=== PATIENT | female | born 1985 | race Caucasian/White ===

== ENCOUNTER → 2019-09-27 07:24 | Outpatient (CLI) | payer SELFPAY ==
--- NOTE | 2019-09-27 | DI.US.S_ITS ---
PROCEDURE: US OB <= 14 WEEKS FETUS INDICATIONS: SIZING AND DATING OUTSIDE/PRIOR DATING DATA: Last menstrual period (LMP): 08/08/19. LMP-based estimated date of delivery (MAURICIO): 05/14/20. First dating scan (date and location): 09/27/19 Estimated date of delivery (MAURICIO) from first dating scan: 05/03/20. TECHNIQUE: Real-time scanning was performed of the fetus and maternal pelvic organs, with image documentation. Endovaginal scanning was also performed to better visualize the fetus and maternal ovaries. COMPARISON: None. FINDINGS: Embryo: [employer]-rump length measures 21 mm corresponding to 8 weeks 5 days. Heart rate measures 170 beats per minute Measurement variability in dating: +/- 4 weeks by LMP, +/- 7 days by mean sac diameter (use before 6 weeks gestation if crown-rump length not able to be measured), +/- 5 days by crown-rump length (up to 8 weeks 6 days gestation), +/- 7 days by crown-rump length (up to 13 weeks 6 days gestation). Maternal organs: Ovaries within normal limits, with small right corpus luteal cyst. Limited images through the kidneys demonstrate no hydronephrosis. IMPRESSION: 8 week 5 day martell IUP corresponding to ultrasound MAURICIO of 05/03/20. Dictated by: Basilio SPARROW Interpreted: Gigi Sumner MD on 09/27/2019 at 8:39 Approved by: Gigi Sumner M.D. on 09/27/2019 at 16:51
== END ==
PROVIDERS: PCP Registered Nurse Women's Health Care, Ambulatory; Visit Provider Nurse Practitioner Family
DX: Z36.87 Encounter for antenatal screening for uncertain dates (principal); Z3A.08 8 weeks gestation of pregnancy
CPT/HCPCS: 76801

== ENCOUNTER → 2019-11-05 18:53 | Outpatient (ROUT) | payer OTHER, MEDICAID, SELFPAY | PROVIDERS: PCP Registered Nurse Women's Health Care, Ambulatory; Visit Provider Family Medicine | DX: N39.0 Urinary tract infection, site not specified (principal) | CPT/HCPCS: 87086 ==

== ENCOUNTER → 2019-12-11 07:35 | Outpatient (CLI) | payer OTHER, MEDICAID, SELFPAY ==
--- NOTE | 2019-12-11 | DI.US.S_ITS ---
PROCEDURE: US OB >= 14 WEEKS FETUS INDICATIONS: ANATOMY OUTSIDE/PRIOR DATING DATA: Last menstrual period (LMP): 08/08/19. LMP-based estimated date of delivery (MAURICIO): 05/14/20. First dating scan (date and location): 09/27/19. Estimated date of delivery (MAURICIO) from first dating scan: 05/03/20. TECHNIQUE: Real-time scanning was performed of the fetus, with image documentation and biometric measurements. Endovaginal scanning: Need COMPARISON: [facility], OB <= 14 WEEKS FETUS, 09/27/2019, 8:03. FINDINGS: General: A single living intrauterine gestation is present. Presentation: Vertex Placenta: Placental position is posterior, without previa. Amniotic fluid index: 14.3 cm, normal range is 5-24 cm. heart rate: 147 beats per minute. Maternal cervical canal: 3.3 cm long. Normal lower limit is 2.5 cm. biometrics: Biparietal diameter: 4.6 cm, 19 weeks 6 days Head circumference: 16.8 cm, 19 weeks 3 days Abdominal circumference: 13.8 cm, 19 weeks 2 days Femur length: 3.3 cm, 20 weeks 3 days Estimated gestational age from initial scan: 19 weeks 3 days Composite gestational age from present scan: 19 weeks 5 days Estimated weight and percentile: 311 g, 65% Measurement variability for biometric dating: +/- 7 days from 14 weeks to 15 weeks 6 days gestation, +/- 10 days from 16 weeks to 21 weeks 6 days gestation, +/- 2 weeks from 22 weeks to 27 weeks 6 days gestation, +/- 3 weeks for 28 weeks gestation or later. weight reference: 4500 g or EFW >90/95% is considered macrosomia or large for gestational age. EFW <10% is small for gestational age. EFW 5% or less is considered intra-uterine growth restriction. Anatomic survey: Neuro: Ventricles are non-dilated at less than 10 mm. Cisterna magna is normal at 3-11 mm. Cerebellum is normal in size and morphology. Nuchal skin fold: Normal at less than 6 mm between 14-21 weeks gestational age. Face: Nose and lips, facial profile are not well seen. Spine: No evidence for spina bifida. Heart: 4-chambered heart is present, with normal ventricular outflow tracts. Diaphragm: Diaphragm is intact. Stomach: Left-sided stomach is present. Kidneys: No hydronephrosis. Normal is less than 5 mm in 2nd trimester, less than 7 mm in 3rd trimester. Cord: 3-vessel cord has orthotopic insertion. Bladder: Normal in size. Extremities: All 4 extremities identified. IMPRESSION: facial structures are not well seen due to positioning. A followup limited OB ultrasound in one-2 weeks likely is warranted to complete the anatomic survey. No anomaly found. Appropriate interval growth, normal amniotic fluid volume. The delivery date is projected to be centered on 05/03/20. Dictated by: Adam José M.D. on 12/17/2019 at 16:46 Approved by: Adam José M.D. on 12/17/2019 at 16:49
== END ==
PROVIDERS: PCP Registered Nurse Women's Health Care, Ambulatory; Referring Provider Family Medicine; Visit Provider Family Medicine
DX: Z36.89 Encounter for other specified antenatal screening (principal); Z3A.19 19 weeks gestation of pregnancy
CPT/HCPCS: 76811

== ENCOUNTER → 2020-01-02 07:07 | Outpatient (CLI) | payer OTHER, MEDICAID, SELFPAY ==
--- NOTE | 2020-01-02 | DI.US.S_ITS ---
PROCEDURE: US OB FOLLOW UP INDICATIONS: FACIAL PROFILE NOT VISUALIZED OUTSIDE/PRIOR DATING DATA: Last menstrual period (LMP): 08/08/19. LMP-based estimated date of delivery (MAURICIO): 05/14/20. First dating scan (date and location): 09/27/19. Estimated date of delivery (MAURICIO) from first dating scan: 05/03/20, plus or -5 days. TECHNIQUE: Real-time scanning was performed of the fetus, with image documentation. Endovaginal scanning: Not needed COMPARISON: None. FINDINGS: A single living intrauterine gestation is present. Presentation: Breech. Placenta: Placental position is posterior, low lying, terminating within 2.1 cm of the internal os of the cervical canal, without previa. Amniotic fluid index: 14.4 cm, normal range is 5-24 cm. heart rate: 144 beats per minute. Maternal cervical canal: 4.7 cm long. Normal lower limit is 2.5 cm. Estimated gestational age from initial scan: 22 weeks 4 days. The facial profile, low brain parenchyma, and neck region were well visualized completing the anatomic survey. No anomalies seen. IMPRESSION: Prior positioning had been vertex, this allowing clear visualization of the lowest margin of the placenta. The current positioning is breech, and the lower placental margin is seen to be low lying, extending to within 2.1 cm of the internal os of the cervical canal. Completion of anatomic survey. Dictated by: Adam José M.D. on 01/02/2020 at 11:35 Approved by: Adam José M.D. on 01/02/2020 at 11:46
== END ==
PROVIDERS: PCP Registered Nurse Women's Health Care, Ambulatory; Referring Provider Family Medicine; Visit Provider Family Medicine
DX: Z36.2 Encounter for other antenatal screening follow-up (principal); Z3A.22 22 weeks gestation of pregnancy
CPT/HCPCS: 76816

== ENCOUNTER → 2020-02-12 12:00 | Outpatient (CLI) | payer OTHER, MEDICAID, SELFPAY ==
--- NOTE | 2020-02-12 | DI.US.S_ITS ---
PROCEDURE: US OB LIMITED INDICATIONS: EFW; LOW-LYING PLACENTA OUTSIDE/PRIOR DATING DATA: Last menstrual period (LMP): 08/08/19. LMP-based estimated date of delivery (MAURICIO): 05/14/20. First dating scan (date and location): 09/27/19. Estimated date of delivery (MAURICIO) from first dating scan: 05/03/20. TECHNIQUE: Real-time scanning was performed of the fetus, with image documentation and biometric measurements. Endovaginal scanning: Not needed. COMPARISON: [facility], OB FOLLOW UP, 01/02/2020, 7:24. [facility] OB >= 14 WEEKS FETUS, 12/11/2019, 7:46. [facility] OB <= 14 WEEKS FETUS, 09/27/2019, 8:03. FINDINGS: General: A single living intrauterine gestation is present. Presentation: Vertex. Placenta: Placental position is posterior, without previa. Amniotic fluid index: 11.1 cm, normal range is 5-24 cm. heart rate: 141 beats per minute. Maternal cervical canal: 4.2 m long. Normal lower limit is 2.5 cm. biometrics: Biparietal diameter: 7.0 cm, 28 weeks 0 days Head circumference: 25.7 cm, 28 weeks 0 days Abdominal circumference: 23.0 cm, 27 weeks 3 days Femur length: 5.9 cm, 30 weeks 5 days Estimated gestational age from initial scan: 28 weeks 3 days Composite gestational age from present scan: 28 weeks 4 days Estimated weight and percentile: 1256 g, 44th percentile Measurement variability for biometric dating: +/- 7 days from 14 weeks to 15 weeks 6 days gestation, +/- 10 days from 16 weeks to 21 weeks 6 days gestation, +/- 2 weeks from 22 weeks to 27 weeks 6 days gestation, +/- 3 weeks for 28 weeks gestation or later. weight reference: 4500 g or EFW >90/95% is considered macrosomia or large for gestational age. EFW <10% is small for gestational age. EFW 5% or less is considered intra-uterine growth restriction. Other: Not applicable. IMPRESSION: The posterior placenta is now well separate from the internal os of the cervical canal measuring over 7.0 cm cephalad. No abnormality seen, appropriate interval growth. The delivery date is projected to be centered on 05/03/20. Dictated by: Adam José M.D. on 02/12/2020 at 13:00 Approved by: Adam José M.D. on 02/12/2020 at 13:03
== END ==
PROVIDERS: PCP Registered Nurse Women's Health Care, Ambulatory; Referring Provider Family Medicine; Visit Provider Family Medicine
DX: O44.43 Low lying placenta NOS or without hemorrhage, third trimester (principal); Z3A.28 28 weeks gestation of pregnancy
CPT/HCPCS: 76815

== ENCOUNTER → 2020-04-13 12:56 | Outpatient (ROUT) | payer OTHER, MEDICAID, SELFPAY | PROVIDERS: PCP Registered Nurse Women's Health Care, Ambulatory; Visit Provider Family Medicine | DX: Z34.80 Encounter for supervision of other normal pregnancy, unspecified trimester (principal) | CPT/HCPCS: 87081 ==

== ENCOUNTER 2020-04-24 10:11 | Outpatient (CLI) | payer OTHER, MEDICAID, SELFPAY | END 2020-04-24 11:35 | disposition home or self-care (01) | LOC: LABOR 11:44 → OB 04-27 15:24 | PROVIDERS: PCP Registered Nurse Women's Health Care, Ambulatory; Referring Provider Family Medicine; Visit Provider Family Medicine | DX: O36.8130 Decreased fetal movements, third trimester, not applicable or unspecified (principal); Z3A.38 38 weeks gestation of pregnancy | CPT/HCPCS: 59025; G0378; G0379 ==

== ENCOUNTER 2020-04-26 09:33 | Inpatient (IN) | payer OTHER, MEDICAID, SELFPAY ==
[2020-04-26 10:23] LABS: Add Manual Diff / Slide Review NO; Basophils Absolute Auto 0 /uL (0-100); Basophils Percent Auto 0.3 % (0-2); Eosinophils Absolute Auto 0 /uL (0-450); Hematocrit 36.7 % (36-46); Hemoglobin 12.1 g/dL (12.0-16.0); Lymphocytes Absolute Auto 1600 /uL (1100-4500); Lymphocytes Percent Auto 10.3 % (25-40); Mean Corpuscular Hemoglobin 27.9 PG (26-34); Mean Corpuscular Volume 84.4 fL (80-100); Monocytes Absolute Auto 600 /uL (0-900); Monocytes Percent Auto 3.8 % (3-14); Neutrophils Absolute Auto 12900 /uL (1500-7000); Neutrophils Percent Auto 85.6 % (50-75); Platelet Count 213 X10^3/uL (150-400); Red Blood Cell Count 4.34 X10^6/uL (4.0-5.2); White Blood Cell Count 15.1 X10^3/uL (4.5-11.0)
[2020-04-26] MEDS: OXYTOCIN PREMIX 30 UNIT/500 ML PLAST..BAG 200 UNIT IV (10:37)
[2020-04-26] MEDS: LIDOCAINE 1% 20 ML (10:40)
[2020-04-26] MEDS: OXYTOCIN 10 UNIT/ML VIAL IM (11:37)
--- NOTE | 2020-04-26 11:49 | P.PCNOB_ITS ---
Labor & Delivery Delivery date: 04/26/20 Intrapartal events: Precipitous Labor < 3 hours Cervical ripening method: none Induction method: none Delivery augmentation: rupture of membranes Delivery monitor: external FHT and external uterine Route of delivery: vacuum extraction Indication for instrumentation: nonreassuring FHR tracing Episiotomy description: None L&D Laceration Description: Perineal - 1st Degree and Superficial Delivery repair: chromic Estimated blood loss (mL): 200 Anesthesia type: None Complications: FHT into 60-90's once AROM and pushing with initial recovery but then stayed in 70-80's btwn contractions so Vacuum assisted performed. Narrative: Identifying data: 35-year-old at 39 weeks estimated gestational age based on LMP and 1st trimester ultrasound presents to labor and delivery with onset of labor at 2:00 a.m. on the day of delivery and patient was found to be complete with a bulging bag of water at the time of presentation. She has had an unremarkable Stage I: 7 hours and 40 minutes Patient states that starting at about o'clock last night she had the feeling that she was constipated and needed to poop. She was then able to defecate but then continued having the sensation that she was constipated and needed to poop. She then started having contractions at approximately 2:00 a.m.. At 10:00 p.m. she had lost her mucus plug and continued to have some bloody show. She denied any rupture membranes. I spoke with her at about 8:45 a.m. and instructed her to go to labor and delivery. On presentation to Labor and delivery she had an intact bulging bag of water and was found to be completely dilated at -1 station. She was asking for IV pain medications which clearly we were not able to administer and she tolerated labor and incredibly well without any analgesia. She presented to labor and delivery at 930 an initial check was at 9:40 a.m. and she was found to be complete. I ride at approximately 10:05 a.m. and performed artificial rupture membranes at 10:15 a.m. which showed clear fluid. Patient was GBS negative. Patient was not coded tested and therefore all staff for appropriate PPE. External tocometer was used showing contractions every 2-3 minutes and they were strong. heart tones baseline was in the 130s with moderate variability and accelerations without decelerations. Overall category 1 tracing. Stage II: Lasted 17 minutes Patient felt the urge to push immediately after rupture membranes. She began and pushing at 10:18 a.m.. Baby's heart rate went in to the 80s with good r ecovery back up to the 130s in between pushing. External heart monitor was used showing baseline 130s with T-cells to the 80s with pushing and then good recovery. Then once baby was down into the +1 station heart rate continued in the 80s to 90s. Patient again pushed making good effort and good movement but then heart rate maintained in the 80s without recovery and at that point VAC was applied. Vacuum was applied 3 times total but the 1st 2 times popped off before I was even able to pull effectively at all. Due to concern about being unable to deliver baby expediently Dr. Joseph who was in the department was asked to come in. We discussed forceps. Mom then was able to push baby down to +2 station and VAC applied for the 3rd time and was able to effectively move baby to and VAC was applied for 30 seconds. The head was delivered in KLAUS position. There was significant molding the left parietal occiput. After the head was delivered I felt for a nuchal cord which was not present and then anterior and posterior shoulders were quickly delivered and baby was placed on mom's chest. Baby was vigorous at but color was off by tube. Apgars were 8 at 1 minute and 9 at 5 minutes. Stage III lasted 1 minutes Normal spontaneous vaginal delivery of an intact placenta. There was a bit of a smell but it was not foul smelling and there is no evidence of infection or concern. There was possible thickening of the edge of the placenta but again no significant calcifications. There was a central cord insertion there was a 3 vessel cord. The placenta and amniotic membranes were intact. As the placenta was delivering tendon use IM pit were given and tendon use of [place] in IV fluids. There was no evidence of cervical or vaginal tears. There were superficial periurethral right greater than left that were not repaired they were not bleeding and more well-approximated. There was a very small right of midline first-degree perineal laceration which was repaired with 3 0 chromic and the usual fashion what with lidocaine approximately 2 cc for anesthesia. There was a 3 vessel cord. At the time of this dictation both mom and baby are in stable condition Plan for aftercare: routine support pit im and iv bc of maricel PPH
--- NOTE | 2020-04-26 12:21 | P.HPOB_ITS ---
OB HPI Date/Time Date of admission: 04/26/20 Date Patient Seen: 04/26/20 Time Patient Seen: 10:08 History of Present Condition Chief complaint: OBS : 2 Para: 1 Estimated Date of Delivery: 05/03/20 Estimated Gestational Age (weeks): 39 Narrative: Susanne Langley is a 35 year old female who has had unremarkable pr egnancy. EDC is 05/03/2020 based on unsure LMP and 1st trimester ultrasound. She begun care early on and had no complications. She presented to Labor in active labor and in fact complete with a bulging bag of water. heart tracing baseline 130s with moderate variability and accelerations with no decelerations, category 1 tracing. Patient has mucus plug was lost at 10:00 p.m. on the day prior to delivery. She began having painful contractions at 2:00 a.m. and presented to labor and delivery at approximately 9:30 a.m. on the date of delivery. History of Present care: good care Dating criteria: LMP confirmed by 1st trimester US Ultrasounds: normal 1st trimester US and normal mid trimester US Abnormal ultrasound findings: He initially had a low lying placenta but this resolved Obstetrical complications: none Medical complications: none Preadmission Labs Blood type: A (+) positive -: Antibody screen: negative, GBS status: negative, HBsAG: negative, HIV: negative, HSV 1: negative, HSV 2: negative and RPR/VDLR: negative -: Chlamydia screen: not detected and Gonorrhea screen: not detected -: Rubella: immune and Varicella: immune HCT: 36.7 HCAB: negative PAP: Normal Integrated screen: Nuchal translucency normal but did not have integrated screen 1 hr GTT: 97 Narrative: Flu shot 11/05/2019. Patient did not have tetanus shot due to allergy to tetanus Prior (ies) History: 1. 08/03/2004 at 40 weeks gestation patient was induced due to elevated blood pressure and went on to have a normal spontaneous vaginal delivery of a viable female weighing 8 lb 2 oz named Cherie. This was at [facility]. Patient had fourth degree tear and then had a hemorrhage for which she received received a transfusion of blood Evaluation Evaluation Baseline heart rate: 130 Variability: Average (6-10) monitor accelerations: Present monitor decelerations: Absent Contraction Frequency (minutes): 3 Uterine Contraction Intensity: Strong/Firm Category of Tracing: I Cervical dilation (cm): 10 Cervical effacement (%): 100 station: 0 Laboratory results: Laboratory Tests 04/26/20 04/26/20 10:10 10:10 WBC 15.1 H RBC 4.34 Hgb 12.1 Hct 36.7 MCV 84.4 MCH 27.9 MCHC 33.0 RDW 13.0 Plt Count 213 Neut % (Auto) 85.6 H Lymph % (Auto) 10.3 L Crenshaw % (Auto) 3.8 Eos % (Auto) 0.0 L Baso % (Auto) 0.3 Neut # (Auto) 50687 H Lymph # (Auto) 1600 [place] # (Auto) 600 Eos # (Auto) 0 Baso # (Auto) 0 Blood Type A Positive Antibody Screen Negative [facility] Social History (Updated 04/26/20 @ 12:31 by Tete Ramos MD) marital status: unmarried,living together number of children: 1 household members: family lives independently: Yes caregiver/support person: Yes housing: house pets and animals: No education level: college occupational status: employed current occupational exposures/hazards: No special jerry needs: No leisure activities: exercise Smoking Status: Never smoker second hand exposure: No alcohol intake: never substance use type: does not use Type(s) of exercise: walking Review of Systems Review of Systems Narrative: Negative for any abdominal pain, headaches, lower extremity edema, negative for any leaking of fluid Baby has been active Negative for fevers Exam Vital Signs (past 8 hours): Afebrile vital signs are stable HEENT unremarkable Neck: Supple, no masses Chest: Clear to auscultation without wheezes rhonchi or crackles Cor: Regular rate and rhythm without any murmur Abdomen: Gravid, vertex, estimated weight 7-7.5 lb Extremities no edema DTRs intact Objective Labs Result Diagrams: 04/26/20 10:10 Labs: Laboratory Results - last 24 hr 04/26/20 04/26/20 10:10 10:10 WBC 15.1 H RBC 4.34 Hgb 12.1 Hct 36.7 MCV 84.4 MCH 27.9 MCHC 33.0 RDW 13.0 Plt Count 213 Neut % (Auto) 85.6 H Lymph % (Auto) 10.3 L Crenshaw % (Auto) 3.8 Eos % (Auto) 0.0 L Baso % (Auto) 0.3 Neut # (Auto) 79806 H Lymph # (Auto) 1600 [place] # (Auto) 600 Eos # (Auto) 0 Baso # (Auto) 0 Blood Type A Positive Antibody Screen Negative Assessment and Plan Assessment and Plan Assessment and Plan narrative: at 39 weeks gestation in active labor ready to push AROM of clear fluid at 10:15 a.m. Will begin pushing GBS negative A positive Expectant management Reassuring heart tones
[2020-04-26] MEDS: DERMOPLAST SPRAY 20% 60 ML 1 SPRAY TOP (12:36)
[2020-04-26 12:37] VITALS: TEMP 36.6
[2020-04-26] MEDS: IBUPROFEN 600 MG TABLET PO (12:37)
[2020-04-26 15:17] VITALS: BP 123/71
[2020-04-26] MEDS: LANOLIN OINT 7 GM 1 APPLIC TOP (15:56)
[2020-04-27 06:29] LABS: Add Manual Diff / Slide Review NO; Basophils Absolute Auto 100 /uL (0-100); Basophils Percent Auto 0.6 % (0-2); Eosinophils Absolute Auto 100 /uL (0-450); Eosinophils Percent Auto 0.4 % (2-4); Hematocrit 33.9 % (36-46); Hemoglobin 11.3 g/dL (12.0-16.0); Lymphocytes Absolute Auto 2300 /uL (1100-4500); Lymphocytes Percent Auto 16.1 % (25-40); Mean Corpuscular HGB Conc 33.2 % (30-36); Mean Corpuscular Volume 84.5 fL (80-100); Monocytes Absolute Auto 800 /uL (0-900); Monocytes Percent Auto 5.8 % (3-14); Neutrophils Absolute Auto 10900 /uL (1500-7000); Neutrophils Percent Auto 77.1 % (50-75); Platelet Count 209 X10^3/uL (150-400); Red Blood Cell Count 4.01 X10^6/uL (4.0-5.2); Red Cell Distribution Width 13.1 % (11.6-14.8); White Blood Cell Count 14.1 X10^3/uL (4.5-11.0)
--- NOTE | 2020-04-27 08:44 | PM.OBDS.1 ---
Discharge Providers Provider Date of admission: 04/26/20 09:33 Discharge Date: 04/27/20 Primary care physician: JACEK Barnett Consults: 04/27/20 11:41 Consult to Statistical Developer Routine Comment: Discharge provider: Tete Ramos MD Summary Time Spent with Patient Time attestation: Total time spent providing and/or coordinating discharge services:35 minutes Patient had without anesthesia and precipitous labor, A positive GBS negative unremarkable course and d/c home on PPD #1 with routine instructions and otc motrin and colace Objective Labs Result Diagrams: 04/27/20 06:20 Labs: Laboratory Results - last 24 hr 04/26/20 04/26/20 04/27/20 10:10 10:10 06:20 WBC 15.1 H 14.1 H RBC 4.34 4.01 Hgb 12.1 11.3 L Hct 36.7 33.9 L MCV 84.4 84.5 MCH 27.9 28.0 MCHC 33.0 33.2 RDW 13.0 13.1 Plt Count 213 209 Neut % (Auto) 85.6 H 77.1 H Lymph % (Auto) 10.3 L 16.1 L Pershing % (Auto) 3.8 5.8 Eos % (Auto) 0.0 L 0.4 L Baso % (Auto) 0.3 0.6 Neut # (Auto) 98958 H 57645 H Lymph # (Auto) 1600 2300 Pershing # (Auto) 600 800 Eos # (Auto) 0 100 Baso # (Auto) 0 100 Blood Type A Positive Antibody Screen Negative Exam Vital Signs (past 8 hours): AF VSS chest: CTA bilaterally Cor RRR without M abdomen wnl ext: 1 plus edema, dtr intact Discharge Plan Discharge Plan Patient Disposition: Home Discharge orders & Medications Prescriptions: No Action No Known Home Medications RF: 0 Follow up/Referrals: Dedra Vickers ARNP [Primary Care Provider] - Tete Ramos MD [Physician] - 05/06/20 Discharge Data Primary Care Provider: Dedra Vickers Attending Provider: Tete Ramos Admit Date/Time: 04/26/20 09:33
== END 2020-04-27 12:30 | disposition home or self-care (01) | DRG 807 ==
PROVIDERS: Admitting Provider Family Medicine; PCP Registered Nurse Women's Health Care, Ambulatory; Referring Provider Family Medicine; Visit Provider Family Medicine
DX: O62.3 Precipitate labor (principal); Z37.0 Single live birth; O76 Abnormality in fetal heart rate and rhythm complicating labor and delivery; O70.0 First degree perineal laceration during delivery; Z3A.39 39 weeks gestation of pregnancy; O36.8130 Decreased fetal movements, third trimester, not applicable or unspecified
CPT/HCPCS: 36415; 59025; 59050; 85025; 86850; 86900; 86901; G0379; J2590

== ENCOUNTER → 2022-04-20 18:51 | Outpatient (CLI) | payer OTHER, MEDICAID, SELFPAY ==
--- NOTE | 2022-04-20 | DI.MRI.S_ITS ---
PROCEDURE: MR HEAD/BRAIN WO/W CON INDICATIONS: migraine unspacified, not intractable, without si TECHNIQUE: Noncontrast axial T1 spin echo, axial T2 fast spin echo, sagittal and axial FLAIR, coronal T2 fast spin echo, axial gradient echo, axial diffusion and ADC through the brain. After the administration of contrast, axial and coronal and sagittal 3D VIBE or T1 spin echo with fat saturation through the brain. COMPARISON: None. FINDINGS: Image quality: Excellent. CSF Spaces: Basal cisterns are patent. No extra-axial fluid collections. Ventricles are normal in size and shape. Brain: No midline shift. No intracranial bleeds or masses. No abnormal intracranial enhancement. The brainstem appears normal. Diffusion-weighted images demonstrate no acute ischemic insults. No chronic ischemic insults. Normal intravascular flow voids are present. Skull and face: Calvarial marrow is normal in signal. Orbits appear normal. Sinuses: Sinuses and mastoids appear clear. IMPRESSION: Normal MRI of the brain. Dictated by: Fernie Madrid M.D. on 04/21/2022 at 8:32 Approved by: Fernie Madrid M.D. on 04/21/2022 at 8:34
== END ==
PROVIDERS: PCP Registered Nurse Women's Health Care, Ambulatory; Referring Provider Family Medicine; Visit Provider Family Medicine
DX: G43.909 Migraine, unspecified, not intractable, without status migrainosus (principal)
CPT/HCPCS: 70553; A9579